=== PATIENT | female | born 1945 | race Caucasian/White ===

== ENCOUNTER → 2017-03-19 | Outpatient (REF) | payer MEDICARE, OTHER ==
[~2017-03-19] MED LIST: /MOXI40TA OR; /TIOT18INH INH; CALC500T49 PO; CELE-19 PO; CELE100C OR; COLA100C3 PO; DALI1TAB2 PO; DOXY10CA PO; DUONSOL IN; EFFE150C OR; EFFE150C PO; FERR32TA PO; FISH1000 PO; FLUT11IN INH; FORM12CA INH; FURO20TA2 PO; GABA-283 PO; GABA800T3 OR; HYDR-2808 PO; HYDR25TA6 OR; IPRASOL4 IN; LISI10TA4 OR; METF500T PO; METF500T4 OR; METF500T4 PO; MUCI600T34 PO; MUCINEX PO; NEUR400C OR; NICO14DI3 TD; NYST10CR TOP; OMEP20CA3 PO; OMEP20TA7 OR; OMEP40CA2 PO; PRAV20TA2 OR; PRAV40TA2 PO; PRED10TA2 OR; PRED20TA PO; PRED20TAB PO; PROA1AER INH; REQU1TAB16 PO; SPIR1CAP INH; VICO5TAB OR; VICO5TAB16 PO; VIT D 2000 PO; VITA200016 PO; ZYPR2.5T OR; ZYPR2.5T2 PO; [UNRECOGNIZED DRUG - OTHER] INH; [UNRECOGNIZED DRUG - OTHER] INH; [UNRECOGNIZED DRUG - OTHER] INH; chlorthalidone PO; digestive advantage PO
[2017-03-19 13:52] LABS: PERCENT SATURATION 16.8 % (13.2-37.4)
== END ==
LOC: M LAB REF 12:51
PROVIDERS: ATTEND Internal Medicine
DX: D50.9 Iron deficiency anemia, unspecified (principal)

== ENCOUNTER → 2018-03-10 | Outpatient (REF) | payer MEDICARE ==
[2018-03-10 19:30] LABS: BANDS 1 % (< 11); LYMPHOCYTES 16 % (16-52); METAMYELOCYTES 1 % (0-0); MONOCYTES 5 % (0-8); NEUTROPHILS 77 % (35-75); PLATELET ESTIMATE NORMAL (NORMAL)
== END ==
LOC: M LAB REF 17:25
DX: D72.829 Elevated white blood cell count, unspecified (principal)
CPT/HCPCS: 85007

== ENCOUNTER → 2018-08-18 | Outpatient (REF) | payer MEDICARE ==
[2018-08-18 18:10] LABS: FERRITIN 33 NG/ML (8-252); IRON (FE) 48 UG/DL (50-170); PERCENT SATURATION 13.4 % (13.2-45.0); TOTAL IRON BINDING CAPACITY 357 UG/DL (250-450)
== END ==
LOC: M LAB REF 16:51
DX: D50.9 Iron deficiency anemia, unspecified (principal)
CPT/HCPCS: 83550

== ENCOUNTER 2018-09-23 12:10 | Inpatient (IN) | payer MEDICARE ==
[2018-09-23 12:37] LABS: BASO # 0.1 10^3/uL (0.0-0.2); BASO % 0.6 % (0.0-1.0); EOS # 0.1 10^3/uL (0.0-0.50); EOS % 0.5 % (0.0-3.0); HEMATOCRIT 38.4 % (36.0-47.0); HEMOGLOBIN 12.2 g/dl (12.0-15.5); IMMATURE GRANULOCYTE % 0.3 % (0-3.0); LYMPH % 8.5 % (24.0-44.0); MEAN CORPUSCULAR HEMOGLOBIN 31.6 pg (27.0-33.0); MEAN CORPUSCULAR HGB CONC 31.8 g/dl (32.0-36.5); MEAN CORPUSCULAR VOLUME 99.5 fl (80.0-96.0); MONO # 0.5 10^3/uL (0.0-0.8); MONO % 4.1 % (0.0-5.0); NEUTROPHILS # 9.9 10^3/uL (1.8-7.7); PLATELET COUNT, AUTOMATED 253 10^3/uL (150-450); RED BLOOD COUNT 3.86 10^6/uL (4.00-5.40); RED CELL DISTRIBUTION WIDTH 13.2 % (11.5-14.5); WHITE BLOOD COUNT 11.5 10^3/uL (4.0-10.0)
[2018-09-23] MEDS: IPRATROPIUM 0.5MG/ALBUTEROL 2.5MG INH SOL UD 3ML (DUONEB)(J7620) NEB ×3 (12:43→19:30)
[2018-09-23 12:47] LABS: INR 0.91; PROTHROMBIN TIME 12.3 SECONDS (12.1-14.4)
[2018-09-23 13:11] LABS: ALBUMIN 3.5 GM/DL (3.2-5.2); ALBUMIN/GLOBULIN RATIO 1.06 (1.00-1.93); ALKALINE PHOSPHATASE 98 U/L (45-117); ALT/SGPT 25 U/L (12-78); ANION GAP 6 MEQ/L (8-16); AST/SGOT 18 U/L (7-37); BILIRUBIN,DIRECT < 0.1 MG/DL (0.0-0.2); BILIRUBIN,TOTAL 0.3 MG/DL (0.2-1.0); BLOOD UREA NITROGEN 11 MG/DL (7-18); CARBON DIOXIDE LEVEL 34 MEQ/L (21-32); CHLORIDE LEVEL 98 MEQ/L (98-107); CPK CREATINE PHOSPHOKINASE 119 U/L (26-192); CREATININE FOR GFR 0.59 MG/DL (0.55-1.30); GLOMERULAR FILTRATION RATE > 60.0 (>39); GLUCOSE, FASTING 169 MG/DL (70-100); MB/CK RELATIVE INDEX 6.97 (< OR =4); SODIUM LEVEL 138 MEQ/L (136-145); THYROID STIMULATING HORMONE 0.663 uIU/ML (0.358-3.740); THYROXINE (T4) 7.6 UG/DL (4.5-12.0); TOTAL PROTEIN 6.8 GM/DL (6.4-8.2); TROPONIN I 0.04 NG/ML (< 0.10)
[2018-09-23] MEDS ORDERED: NS 1,000 ML IV (15:39)
[2018-09-23] MEDS ORDERED: ACETAMINOPHEN TAB 650MG DOSE (2X325MG) PO (15:45)
[2018-09-23] MEDS ORDERED: SLF 3 ML SYR IV (17:45)
[2018-09-23] MEDS: LevoFLOXacin IV 500 MG in APPROPRIATE DILUENT 1 EA IV (18:30)
[2018-09-23] MEDS: ENOXAPARIN 40 MG/0.4 ML SYRINGE (J1650) SC (18:30)
[2018-09-23] MEDS: NICOTINE 14 MG/24 HR TRANSDERMAL TD (18:31)
[2018-09-23 20:17] LABS: BEDSIDE GLUCOSE 264 MG/DL (83-110)
[2018-09-23] MEDS: METOPROLOL TART 50 MG TAB PO (20:39)
[2018-09-23] MEDS: methylPREDNISolone INJ 40 MG/1 ML VIAL (J2920) IV ×2 (20:39→22:24)
[2018-09-23] MEDS: guaiFENesin ER 600 MG TAB PO (20:39)
[2018-09-23] MEDS: GABAPENTIN 400 MG CAP PO (20:39)
[2018-09-23] MEDS: rOPINIRole 1MG TAB PO (20:40)
[2018-09-23] MEDS: OLANZapine 2.5MG TABLET PO (20:40)
[2018-09-23] MEDS: OMEPRAZOLE 20 MG CAP PO (20:40)
[2018-09-23] MEDS: HumaLOG INSULIN (NovoLOG) PER UNIT SC (20:40)
[2018-09-23] MEDS: SLF 3 ML SYR IV (20:46)
[2018-09-23] MEDS ORDERED: amLODIPine 5 MG TAB PO (21:00)
[2018-09-23] MEDS: ALBUTEROL SULFATE 2.5 MG/0.5 ML INH NEB SOLN INH (22:00)
[2018-09-23 22:19] LABS: ABG BASE EXCESS 5.2 (-2.0-2.0); ABG HCO3 31.9 MEQ/L (22.0-26.0); ABG O2 SATURATION 98.9 % (95.0-99.0); ABG PARTIAL PRESSURE CO2 56.5 mmHg (35.0-45.0); ABG PARTIAL PRESSURE O2 149.7 mmHg (75.0-100.0); ABG STANDARD HCO3 29.2 MEQ/L (22.0-26.0); ABG TOTAL CO2 33.7 MEQ/L (23.0-31.0)
[2018-09-24] MEDS: IPRATROPIUM 0.5MG/ALBUTEROL 2.5MG INH SOL UD 3ML (DUONEB)(J7620) NEB ×7 (00:12→23:21)
[2018-09-24] MEDS: methylPREDNISolone INJ 40 MG/1 ML VIAL (J2920) IV ×4 (02:10→21:22)
[2018-09-24 05:21] LABS: BASO % 0.1 % (0.0-1.0); HEMATOCRIT 38.2 % (36.0-47.0); HEMOGLOBIN 11.9 g/dl (12.0-15.5); IMMATURE GRANULOCYTE % 0.7 % (0-3.0); LYMPH # 0.7 10^3/uL (1.5-4.5); LYMPH % 6.5 % (24.0-44.0); MEAN CORPUSCULAR HEMOGLOBIN 31.1 pg (27.0-33.0); MEAN CORPUSCULAR HGB CONC 31.2 g/dl (32.0-36.5); MEAN CORPUSCULAR VOLUME 99.7 fl (80.0-96.0); MONO # 0.2 10^3/uL (0.0-0.8); MONO % 1.7 % (0.0-5.0); NEUTROPHILS # 9.6 10^3/uL (1.8-7.7); PLATELET COUNT, AUTOMATED 242 10^3/uL (150-450); RED BLOOD COUNT 3.83 10^6/uL (4.00-5.40); RED CELL DISTRIBUTION WIDTH 12.9 % (11.5-14.5); WHITE BLOOD COUNT 10.5 10^3/uL (4.0-10.0)
[2018-09-24 05:50] LABS: ANION GAP 3 MEQ/L (8-16); BLOOD UREA NITROGEN 15 MG/DL (7-18); CALCIUM LEVEL 8.8 MG/DL (8.8-10.2); CARBON DIOXIDE LEVEL 37 MEQ/L (21-32); CHLORIDE LEVEL 99 MEQ/L (98-107); CREATININE FOR GFR 0.53 MG/DL (0.55-1.30); GLOMERULAR FILTRATION RATE > 60.0 (>39); GLUCOSE, FASTING 184 MG/DL (70-100); POTASSIUM SERUM 4.9 MEQ/L (3.5-5.1); SODIUM LEVEL 139 MEQ/L (136-145)
[2018-09-24] MEDS: SLF 3 ML SYR IV ×3 (06:00→21:24)
[2018-09-24] MEDS: amLODIPine 5 MG TAB PO ×2 (06:00→21:23)
[2018-09-24] MEDS: NICOTINE 14 MG/24 HR TRANSDERMAL TD (09:05)
[2018-09-24] MEDS: OMEPRAZOLE 20 MG CAP PO ×2 (09:05→21:23)
[2018-09-24] MEDS: VENLAFAXINE **XR** 75MG CAPSULE PO (09:05)
[2018-09-24] MEDS: GABAPENTIN 400 MG CAP PO ×2 (09:05→21:23)
[2018-09-24] MEDS: guaiFENesin ER 600 MG TAB PO ×2 (09:05→21:23)
[2018-09-24] MEDS: ENOXAPARIN 40 MG/0.4 ML SYRINGE (J1650) SC (09:06)
[2018-09-24] MEDS: HumaLOG INSULIN (NovoLOG) PER UNIT SC ×4 (09:06→21:00)
[2018-09-24] MEDS: ALBUTEROL SULFATE 2.5 MG/0.5 ML INH NEB SOLN INH ×2 (09:28→13:05)
[2018-09-24 11:26] LABS: BEDSIDE GLUCOSE 329 MG/DL (83-110)
[2018-09-24 16:55] LABS: BEDSIDE GLUCOSE 217 MG/DL (83-110)
[2018-09-24] MEDS: LevoFLOXacin IV 500 MG in APPROPRIATE DILUENT 1 EA IV (16:56)
[2018-09-24] MEDS: rOPINIRole 1MG TAB PO (21:24)
[2018-09-24] MEDS: OLANZapine 2.5MG TABLET PO (21:24)
[2018-09-24 21:25] LABS: BEDSIDE GLUCOSE 134 MG/DL (83-110)
[2018-09-25] MEDS: methylPREDNISolone INJ 40 MG/1 ML VIAL (J2920) IV ×4 (02:36→20:00)
[2018-09-25] MEDS: IPRATROPIUM 0.5MG/ALBUTEROL 2.5MG INH SOL UD 3ML (DUONEB)(J7620) NEB ×6 (03:30→23:23)
[2018-09-25 04:38] LABS: BASO % 0.1 % (0.0-1.0); HEMATOCRIT 33.8 % (36.0-47.0); HEMOGLOBIN 10.7 g/dl (12.0-15.5); IMMATURE GRANULOCYTE % 1.5 % (0-3.0); LYMPH # 0.7 10^3/uL (1.5-4.5); LYMPH % 3.6 % (24.0-44.0); MEAN CORPUSCULAR HEMOGLOBIN 31.4 pg (27.0-33.0); MEAN CORPUSCULAR HGB CONC 31.7 g/dl (32.0-36.5); MEAN CORPUSCULAR VOLUME 99.1 fl (80.0-96.0); MONO # 0.7 10^3/uL (0.0-0.8); MONO % 3.7 % (0.0-5.0); NEUTROPHILS # 16.4 10^3/uL (1.8-7.7); NEUTROPHILS % 91.1 % (36.0-66.0); PLATELET COUNT, AUTOMATED 227 10^3/uL (150-450); RED BLOOD COUNT 3.41 10^6/uL (4.00-5.40); RED CELL DISTRIBUTION WIDTH 13.1 % (11.5-14.5)
[2018-09-25 04:56] LABS: ANION GAP 4 MEQ/L (8-16); BLOOD UREA NITROGEN 18 MG/DL (7-18); CALCIUM LEVEL 8.7 MG/DL (8.8-10.2); CARBON DIOXIDE LEVEL 38 MEQ/L (21-32); CHLORIDE LEVEL 100 MEQ/L (98-107); GLOMERULAR FILTRATION RATE > 60.0 (>39); GLUCOSE, FASTING 189 MG/DL (70-100); POTASSIUM SERUM 4.3 MEQ/L (3.5-5.1); SODIUM LEVEL 142 MEQ/L (136-145)
[2018-09-25] MEDS: SLF 3 ML SYR IV ×3 (05:38→22:00)
[2018-09-25] MEDS: VENLAFAXINE **XR** 75MG CAPSULE PO (08:35)
[2018-09-25] MEDS: guaiFENesin ER 600 MG TAB PO ×2 (08:35→20:43)
[2018-09-25] MEDS: GABAPENTIN 400 MG CAP PO ×2 (08:35→20:44)
[2018-09-25] MEDS: OMEPRAZOLE 20 MG CAP PO ×2 (08:35→20:43)
[2018-09-25] MEDS: NICOTINE 14 MG/24 HR TRANSDERMAL TD (08:36)
[2018-09-25] MEDS: HumaLOG INSULIN (NovoLOG) PER UNIT SC ×4 (08:36→20:42)
[2018-09-25] MEDS: ENOXAPARIN 40 MG/0.4 ML SYRINGE (J1650) SC (08:36)
[2018-09-25] MEDS: ALBUTEROL SULFATE 2.5 MG/0.5 ML INH NEB SOLN INH ×3 (09:22→16:52)
[2018-09-25] MEDS: POTASSIUM CHLORIDE 10 MEQ SR TABLET PO (10:38)
[2018-09-25] MEDS: MAGNESIUM OXIDE 400 MG TAB (MAG-OX) PO ×2 (10:38→20:44)
[2018-09-25] MEDS: FUROSEMIDE 40 MG TAB PO (10:38)
[2018-09-25] MEDS: FERROUS GLUCONATE 324 MG TAB PO (10:38)
[2018-09-25 11:32] LABS: BEDSIDE GLUCOSE 201 MG/DL (83-110)
[2018-09-25] MEDS: LevoFLOXacin IV 500 MG in APPROPRIATE DILUENT 1 EA IV (16:09)
[2018-09-25 16:56] LABS: BEDSIDE GLUCOSE 331 MG/DL (83-110)
[2018-09-25 20:33] LABS: BEDSIDE GLUCOSE 316 MG/DL (83-110)
[2018-09-25] MEDS: rOPINIRole 1MG TAB PO (20:43)
[2018-09-25] MEDS: OYSTER SHELL CALCIUM 500 MG TAB PO (20:43)
[2018-09-25] MEDS: OLANZapine 2.5MG TABLET PO (20:43)
[2018-09-25] MEDS: PRAVASTATIN 20 MG TAB PO (20:43)
[2018-09-25] MEDS: amLODIPine 5 MG TAB PO (20:44)
[2018-09-26] MEDS: methylPREDNISolone INJ 40 MG/1 ML VIAL (J2920) IV ×3 (01:24→13:34)
[2018-09-26 04:37] LABS: HEMATOCRIT 34.9 % (36.0-47.0); MEAN CORPUSCULAR HGB CONC 31.5 g/dl (32.0-36.5); MEAN CORPUSCULAR VOLUME 98.3 fl (80.0-96.0); PLATELET COUNT, AUTOMATED 237 10^3/uL (150-450); RED BLOOD COUNT 3.55 10^6/uL (4.00-5.40); RED CELL DISTRIBUTION WIDTH 13.2 % (11.5-14.5)
[2018-09-26 04:40] LABS: ADD MANUAL DIFFER YES; DIFF SLIDE NUMBER 76; POSITIVE MORPH POS FLAG
[2018-09-26] MEDS: IPRATROPIUM 0.5MG/ALBUTEROL 2.5MG INH SOL UD 3ML (DUONEB)(J7620) NEB ×4 (04:55→14:55)
[2018-09-26 04:56] LABS: ANION GAP 1 MEQ/L (8-16); BLOOD UREA NITROGEN 21 MG/DL (7-18); CALCIUM LEVEL 8.6 MG/DL (8.8-10.2); CARBON DIOXIDE LEVEL 44 MEQ/L (21-32); CHLORIDE LEVEL 97 MEQ/L (98-107); CREATININE FOR GFR 0.76 MG/DL (0.55-1.30); GLOMERULAR FILTRATION RATE > 60.0 (>39); GLUCOSE, FASTING 208 MG/DL (70-100); POTASSIUM SERUM 3.9 MEQ/L (3.5-5.1); SODIUM LEVEL 142 MEQ/L (136-145)
[2018-09-26 05:02] LABS: LYMPHOCYTES 5 % (16-52); MONOCYTES 2 % (0-8); NEUTROPHILS 93 % (35-75)
[2018-09-26 05:03] LABS: PLATELET ESTIMATE NORMAL (NORMAL)
[2018-09-26] MEDS: SLF 3 ML SYR IV ×2 (05:47→13:35)
[2018-09-26] MEDS: NICOTINE 14 MG/24 HR TRANSDERMAL TD (08:41)
[2018-09-26] MEDS: HumaLOG INSULIN (NovoLOG) PER UNIT SC ×2 (08:41→13:35)
[2018-09-26] MEDS: FUROSEMIDE 40 MG TAB PO (08:42)
[2018-09-26] MEDS: VENLAFAXINE **XR** 75MG CAPSULE PO (08:42)
[2018-09-26] MEDS: OMEPRAZOLE 20 MG CAP PO (08:42)
[2018-09-26] MEDS: POTASSIUM CHLORIDE 10 MEQ SR TABLET PO (08:42)
[2018-09-26] MEDS: guaiFENesin ER 600 MG TAB PO (08:42)
[2018-09-26] MEDS: GABAPENTIN 400 MG CAP PO (08:42)
[2018-09-26] MEDS: ENOXAPARIN 40 MG/0.4 ML SYRINGE (J1650) SC (08:43)
[2018-09-26] MEDS: FERROUS GLUCONATE 324 MG TAB PO (08:43)
[2018-09-26] MEDS: MAGNESIUM OXIDE 400 MG TAB (MAG-OX) PO (08:43)
[2018-09-26 11:15] LABS: BEDSIDE GLUCOSE 262 MG/DL (83-110)
[2018-09-26] MEDS: ALBUTEROL SULFATE 2.5 MG/0.5 ML INH NEB SOLN INH (17:18)
== END 2018-09-26 17:35 | disposition home health service (06) | DRG 191 ==
LOC: M ED 12:10 → M ED INP 15:39 → M PCU 17:31
DX: J44.1 Chronic obstructive pulmonary disease with (acute) exacerbation (principal); J96.11 Chronic respiratory failure with hypoxia; I10 Essential (primary) hypertension; E11.40 Type 2 diabetes mellitus with diabetic neuropathy, unspecified; E78.5 Hyperlipidemia, unspecified; K21.9 Gastro-esophageal reflux disease without esophagitis; F17.210 Nicotine dependence, cigarettes, uncomplicated; Z99.81 Dependence on supplemental oxygen; Z66 Do not resuscitate; G25.81 Restless legs syndrome; F41.9 Anxiety disorder, unspecified; D50.9 Iron deficiency anemia, unspecified